=== PATIENT | female | born 1980 | race African-American/Black ===

== ENCOUNTER → 2016-12-28 | Outpatient (CLI) | payer SELFPAY ==
--- NOTE | 2016-12-28 15:58 | RAD ---
CHEST PA LATERAL Technique: PA and lateral views of the chest were obtained. Clinical History: PULMONARY NODULE Comparison: None. Findings: The heart and pulmonary vasculature appear within normal limits. There is a 9 mm pulmonary nodule or granuloma identified in the right lower lobe of the lung.. The pleural margins are clear. Impression: 9 mm pulmonary nodule or granuloma identified in the right lower lobe of the lung. Comparison with prior exam is recommended if available. Alternatively CT chest is recommended.
== END | disposition home or self-care (01) ==
LOC: DXRADRC 10:51
PROVIDERS: ATTEND Family Medicine
DX: R91.1 Solitary pulmonary nodule (principal)
CPT/HCPCS: 71020

== ENCOUNTER → 2017-01-10 | Outpatient (CLI) | payer OTHER ==
--- NOTE | 2017-01-16 09:16 | RAD ---
DATE: 01/10/2017 EXAM: DIGITAL SCREEN BILAT W/CAD HISTORY: Routine screening COMPARISON: Baseline study This study was interpreted with the benefit of Computerized Aided Detection (CAD). The breast parenchyma shows scattered fibroglandular densities. Breast parenchyma level B. FINDINGS: There is a small nodule with a hilar lucency in the posterior aspect of the upper outer quadrant of the left breast, compatible with a benign intramammary lymph node. No other unusual breast densities are seen. On the original images from 01/10/2017 there were deodorant type artifacts projected over the axillary regions. These largely resolved on repeat imaging following cleansing of these regions on 01/16/2017. No suspicious breast calcifications are evident. IMPRESSION: There is no mammographic evidence of malignancy in either breast. BI-RADS CATEGORY: 2 BENIGN FINDING(S) RECOMMENDED FOLLOW-UP: 12M 12 MONTH FOLLOW-UP PQRS compliance statement: Patient information was entered into a reminder system with a target due date for the next mammogram. Mammography is a sensitive method for finding small breast cancers, but it does not detect them all and is not a substitute for careful clinical examination. A negative mammogram does not negate a clinically suspicious finding and should not result in delay in biopsying a clinically suspicious abnormality. "Our facility is accredited by the [employer] Mammography [employer]."
== END | disposition home or self-care (01) ==
LOC: MAMMO 13:55
PROVIDERS: ATTEND Family Medicine
DX: Z12.31 Encounter for screening mammogram for malignant neoplasm of breast (principal)
CPT/HCPCS: G0202; 77067

== ENCOUNTER → 2017-07-05 | Outpatient (CLI) | payer OTHER ==
--- NOTE | 2017-07-05 11:42 | RAD ---
Chest, 2 views, 07/05/2017: History: Pulmonary nodule Comparison is made to a study from 12/28/2016. The heart size and pulmonary vascularity are normal. There is an unchanged small lobulated nodule in the lateral aspect of the right mid lung. This is probably a granuloma. No new pulmonary abnormality is seen. There is no evidence of pleural fluid. Mild spurring is present in the spine. IMPRESSION: Unchanged right pulmonary nodule, most likely a granuloma.
== END | disposition home or self-care (01) ==
LOC: PMG 09:58
PROVIDERS: ATTEND Family Medicine
DX: R91.1 Solitary pulmonary nodule (principal)
CPT/HCPCS: 71046

== ENCOUNTER → 2018-04-02 | Outpatient (CLI) | payer OTHER ==
--- NOTE | 2018-04-02 15:00 | RAD ---
DATE: 04/02/2018 10:30 AM EXAM: DIGITAL SCREEN BILAT W/CAD HISTORY: routine screening evaluation. COMPARISON: 01/10/2017 Bilateral full field craniocaudal and mediolateral oblique images were obtained using digital technique. This study was interpreted with the benefit of Computerized Aided Detection (CAD ). Breast Density: The breast parenchyma shows scattered fibroglandular densities. Breast parenchyma level B. FINDINGS: An asymmetry is seen in the superior right breast only on MLO view at the posterior depth approximately 10 cm from the nipple. No suspicious right breast microcalcifications. Reniform nodularity in the axillary region of the left breast is essentially stable. No suspicious microcalcifications or architectural distortion is present in either breast. The visualized axillae are unremarkable. IMPRESSION: Right breast asymmetry, findings for which additional imaging is advised. BI-RADS CATEGORY: 0 INCOMPLETE: NEEDS ADDITIONAL IMAGING EVALUATION AND/OR PRIOR MAMMOGRAMS FOR COMPARISON. RECOMMENDED FOLLOW-UP: ADD ADDITIONAL IMAGING The patient will be contacted to return for additional imaging to include spot compression views in the right MLO view and possibly ultrasound and a supplemental report will follow. PQRS compliance statement: Patient information was entered into a reminder system with a target due date-immediate recall for the next breast imaging. Mammography is a sensitive method for finding small breast cancers, but it does not detect them all and is not a substitute for careful clinical examination. A negative mammogram does not negate a clinically suspicious finding and should not result in delay in biopsying a clinically suspicious abnormality. "Our facility is accredited by the [employer] Mammography [employer]." [email or web address]
== END | disposition home or self-care (01) ==
LOC: MAMMO 08:22
PROVIDERS: ATTEND Family Medicine
DX: Z12.31 Encounter for screening mammogram for malignant neoplasm of breast (principal)
CPT/HCPCS: 77067

== ENCOUNTER → 2018-04-07 | Outpatient (CLI) | payer OTHER ==
--- NOTE | 2018-04-07 14:28 | RAD ---
DATE: 04/07/2018 EXAM: DIGITAL DIAGNOSTIC RT HISTORY: Suspicious screening study COMPARISON: 04/02/2018 This study was interpreted with the benefit of Computerized Aided Detection (CAD). Breast Density: SCATTERED The breast parenchyma shows scattered fibroglandular densities. Breast parenchyma level B. FINDINGS: Additional spot compression oblique views were obtained of the area of concern described superiorly in the right breast on only the oblique view of the screening study. The spot compression views demonstrate only streaky fibroglandular type shadows similar to those seen on an older exam from 01/10/2017. No breast mass or developing density is seen. A straight mediolateral view of the right breast also shows no evidence of a mass. IMPRESSION: There is no mammographic evidence of malignancy in the right breast. BI-RADS CATEGORY: 2 BENIGN FINDING(S) RECOMMENDED FOLLOW-UP: 12M 12 MONTH FOLLOW-UP PQRS compliance statement: Patient information was entered into a reminder system with a target due date for the next mammogram. Mammography is a sensitive method for finding small breast cancers, but it does not detect them all and is not a substitute for careful clinical examination. A negative mammogram does not negate a clinically suspicious finding and should not result in delay in biopsying a clinically suspicious abnormality. "Our facility is accredited by the [employer] Mammography [employer]."
== END | disposition home or self-care (01) ==
LOC: MAMMO 13:41
PROVIDERS: ATTEND Family Medicine
DX: R92.8 Other abnormal and inconclusive findings on diagnostic imaging of breast (principal)
CPT/HCPCS: 77065

== ENCOUNTER → 2019-04-06 | Outpatient (CLI) | payer BC ==
--- NOTE | 2019-04-10 16:51 | RAD ---
DATE: 04/06/2019. EXAM: DIGITAL SCREEN BILAT W/CAD. HISTORY: Routine mammographic screening. COMPARISON: 04/01/2019. This study was interpreted with the benefit of Computerized Aided Detection (CAD). FINDINGS: Breast Density: SCATTERED The breast parenchyma shows scattered fibroglandular densities. Breast parenchyma level B.. There are no suspicious masses, microcalcifications or architectural distortion. The parenchymal pattern is stable. An intraparenchymal lymph node on the left is stable. BI-RADS CATEGORY: 2 BENIGN FINDING(S). RECOMMENDED FOLLOW-UP: 12M 12 MONTH FOLLOW-UP. PQRS compliance statement: Patient information was entered into a reminder system with a target due date 04/06/2020 for the next mammogram. Mammography is a sensitive method for finding small breast cancers, but it does not detect them all and is not a substitute for careful clinical examination. A negative mammogram does not negate a clinically suspicious finding and should not result in delay in biopsying a clinically suspicious abnormality. "Our facility is accredited by the [employer] Mammography [employer]."
== END | disposition home or self-care (01) ==
LOC: MAMMO 08:13
PROVIDERS: ATTEND Family Medicine
DX: Z12.31 Encounter for screening mammogram for malignant neoplasm of breast (principal)
CPT/HCPCS: 77067